=== PATIENT | female | born 1960 | race Caucasian/White ===

== ENCOUNTER 2016-12-04 20:25 | Emergency (ER) | payer OTHER ==
--- NOTE | ~2016-12-04 | CT2 ---
[facility] A Service [facility] RADIOLOGY TEXT RESULTS PATIENT: STEVE TREVINO LOCATION: SED : 60 UNIT #: [id number] AGE: [address]: Lloyd Obrien MD SEX: F ORDER DR: [id number] [place] [id number] E MR#: [id number] Acc #: [id number] NAME: STEVE TREVINO. : 1960 SEX: F STUDY DATE/TIME: 12/04/2016 21:39 UNIT: SED ROOM: STUDY DESCRIPTION: CT Abd and Pelv W Cont Attending Physician: Lloyd Obrien M.D. Ordering Physician: Physician Non-Staff Primary Care Physician: Carisa Vo MEDICAL IMAGING REPORT This report is preliminary unless electronic signature is present. EXAM CT abdomen and pelvis, 12/04/2016 INDICATION Right upper abdominal pain for [address] of the abdomen and pelvis with p.o. and IV contrast. 100 mL Isovue-370 IV contrast was utilized. Coronal and sagittal reconstructions were obtained. This CT exam was performed with one or more of the following radiation dose reduction techniques: automatic exposure control, adjustment of mA and/or kV according to patient size, and iterative reconstruction. COMPARISON CT abdomen and pelvis dated 07/05/2015. FINDINGS ABDOMEN: A pulmonary nodule in the lingula measures 5.0 mm. This is unchanged from a CT scan from 2010 indicating a benign granuloma. The solid abdominal organs enhance normally. The gallbladder is not distended. The bowel is not dilated. The abdominal aorta is normal in caliber. The appendix is normal. PELVIS: No pelvic mass. The uterus and ovaries are within normal limits. No enlarged pelvic or inguinal lymph nodes. No acute osseous abnormalities. IMPRESSION No acute findings in the abdomen or pelvis. [facility] A Service [facility] RADIOLOGY TEXT RESULTS PATIENT: STEVE TREVINO LOCATION: SED : 60 UNIT #: [id number] AGE: [address]: Lloyd Obrien MD SEX: F ORDER DR: Dictated by... Rubens Gann M.D. THIS IS AN ELECTRONICALLY VERIFIED REPORT Rubens Gann M.D. at 12/05/2016 12:20 PM SAURABH/pauline TD: 12/05/2016 11:15 JOB #: [id number] MEDICAL IMAGING REPORT
[2016-12-04 20:24] LABS: BASOPHIL# 0.1 X10e3 (0-0.3); BASOPHIL% 0.9 % (0-2.5); EOSINOPHIL# 0.1 X10e3 (0-0.7); EOSINOPHIL% 0.9 % (0.0-7.0); HEMATOCRIT 42.7 % (35.0-45.0); HEMOGLOBIN 14.8 gm/dL (12.0-16.0); LYMPHOCYTE# 4.7 X10e3 (1.0-3.5); LYMPHOCYTE% 44.7 % (17.0-45.0); MEAN CORPUSCULAR HEMOGLOBIN 30.8 PG (28-34); MEAN CORPUSCULAR HGB CONC 34.7 g/dL (30-36); MEAN PLATELET VOLUME 9.1 FL (6.5-11.5); MONOCYTE# 0.6 X10e3 (0-1.0); MONOCYTE% 5.8 % (3.0-12.0); NEUTROPHIL% 47.7 % (40-75); PLATELET COUNT 204 X10e3 (140-420); RED CELL DISTRIBUTION WIDTH 13.4 % (11.0-15.5); WHITE BLOOD COUNT 10.4 X10e3 (4.0-10.5)
[2016-12-04 20:25] LABS: URINE SOURCE CLEAN CATCH
[~2016-12-04 20:25] MED LIST: ALPRAZOLAM; AMOXICILLIN500 M1 PO; BENTYL20 MG PO; CIPRO250 MG PO; COLACE PO; LIPITOR PO; MEVACOR; MIRALAX255 GM PO; PHENERGAN DM PO; PREDNISONE10 MG/DOSE PO; ST. JOSEPH ASPI81 M3 PO; ZITHROMAX PO
[2016-12-04 20:26] LABS: DIFF IND NO
[2016-12-04 20:27] LABS: URINE APPEARANCE CLEAR; URINE BILIRUBIN NEG (NEG); URINE BLOOD TRACE-INTACT (NEG); URINE COLOR YELLOW; URINE GLUCOSE NEG (NORM); URINE KETONE NEG (NEG); URINE LEUKOCYTE ESTERASE NEG (NEG); URINE NITRATE NEG (NEG); URINE PROTEIN NEG (NEG); URINE SPECIFIC GRAVITY <=1.005 (1.003-1.035); URINE UROBILINOGEN 0.2 MG/DL (NORM)
[2016-12-04 20:31] LABS: CULTURE INDICATED? NO; MICRO INDICATED? YES; URINE BACTERIA NEG (NEG); URINE SQUAMOUS EPITHELIAL CELL FEW /[HPF]; URINE WBC 0-2 /[HPF] (0-5)
[2016-12-04 20:41] LABS: ALBUMIN SERUM 4.7 g/dL (3.5-5.0); ALKALINE PHOSPHATASE 63 U/L (32-92); ALT (SGPT) 13 U/L (10-40); AMYLASE 27 U/L (0-46); AST (SGOT) 19 U/L (10-42); BILIRUBIN, DIRECT <0.1 mg/dL (0.0-0.2); BILIRUBIN,INDIRECT 0.4 mg/dL (0.0-0.9); BILIRUBIN,TOTAL 0.5 mg/dL (0.2-2.0); BLOOD UREA NITROGEN 9 mg/dL (9-23); CALCIUM SERUM 9.4 mg/dL (8.4-10.2); CARBON DIOXIDE 25 mmol/L (22-31); CHLORIDE 100 mmol/L (100-111); CREATININE SERUM 0.9 mg/dL (0.6-1.4); GLOM FILT RATE Estimated ABOVE60 mL/min (>60); GLUCOSE FASTING 100 mg/dL (70-110); LIPASE 35 U/L (22-51); POTASSIUM 3.7 mmol/L (3.5-5.1); PROTEIN TOTAL SERUM 7.8 g/dL (6.0-8.3); SODIUM 136 mmol/L (135-145)
== END 2016-12-04 22:52 | disposition home or self-care (01) ==
LOC: SED 20:25
PROVIDERS: Emergency Medicine
DX: R10.11 Right upper quadrant pain (principal); E78.5 Hyperlipidemia, unspecified; F17.210 Nicotine dependence, cigarettes, uncomplicated; Z79.82 Long term (current) use of aspirin
CPT/HCPCS: 36415; 74177; 80048; 80076; 81003; 82150; 83690; 85025; 96374; 96375; 99284; J1885; Q9967